=== PATIENT | female | born 1970 | race Caucasian/White ===

== ENCOUNTER 2019-03-04 09:40 | Outpatient (CLI) | payer SELFPAY ==
--- NOTE | 2019-03-04 | US_ITS ---
WS: [id number] ULTRASOUND PELVIS TECHNIQUE: Transabdominal. CLINICAL INFORMATION: MENORRHAGIA LMP: 1 8,020 : No. COMPARISON: None. FINDINGS: Cervix measures 4.1 cm Uterus Orientation: Anteverted. Size: 9.0 cm x 6.6 cm x 5.3 cm Masses: Fibroids measuring 2.2 x 1.5 x 1.3 cm and 2.0 x 1.2 x 1.8 cm Cervix: 4.1 cm. Endometrium: Slightly thickened Endometrium thickness: 10.1 mm Adnexa: Normal. Right ovary size: 2.4 cm x 2.3 cm x 1.6 cm. Right ovary volume: 4.6 ccm3 Left ovary size: 2.9 cm x 5.4 cm x 1.5 cm. Left ovary volume: 5.5 ccm3 Free fluid: None. Other findings: None. US/US pelvic complete* [id number] IMPRESSION: 1. 2 submucosal fibroids measuring 2.2 x 1.5 x 1.3 cm and 2.0 x 1.2 x 1.8 cm 2. Slightly thickened endometrium measuring 10 mm. 3. Both ovaries are normal in appearance. 4. No free fluid in the cul-de-sac.
== END 2019-03-04 09:41 | disposition home or self-care (01) ==
PROVIDERS: Visit Provider Physician Assistant
DX: Z76.89 Persons encountering health services in other specified circumstances (principal)

== ENCOUNTER → 2019-09-13 15:23 | Outpatient (BNVA) | payer SELFPAY | PROVIDERS: Visit Provider Obstetrics & Gynecology | DX: N83.292 Other ovarian cyst, left side (principal); D25.0 Submucous leiomyoma of uterus | CPT/HCPCS: 76830 ==

== ENCOUNTER → 2019-09-14 14:10 | Outpatient (BNVA) | payer SELFPAY | PROVIDERS: Visit Provider Obstetrics & Gynecology | DX: N93.9 Abnormal uterine and vaginal bleeding, unspecified (principal); D25.1 Intramural leiomyoma of uterus | CPT/HCPCS: 88175; 88305 ==

== ENCOUNTER 2019-10-14 09:12 | Outpatient (CLI) | payer OTHER, SELFPAY ==
--- NOTE | 2019-10-14 09:23 | MM_ITS ---
WS: [id number] BILATERAL DIGITAL SCREENING MAMMOGRAPHY WITH CAD CLINICAL INFORMATION: SCREENING HISTORY: Screening mammogram. No current complaints. COMPARISON: August 19, 2017 TECHNIQUE: Bilateral CC and MLO views. FINDINGS: The breasts are composed of heterogeneous fibroglandular density tissue, which can limit the detectio n of small underlying mass lesions. No suspicious mass, asymmetry, calcifications, or architectural d istortion. No evidence of malignancy. MM/[place] [id number] IMPRESSION: BI-RADS: 2-Benign FOLLOW UP: 1 Year Follow-up Recommend return to annual screening mammography.
== END 2019-10-14 09:13 | disposition home or self-care (01) ==
LOC: RADSHAW 09:17
DX: Z12.31 Encounter for screening mammogram for malignant neoplasm of breast (principal)
CPT/HCPCS: 77067

== ENCOUNTER → 2019-10-24 12:59 | Outpatient (BNVA) | payer SELFPAY | PROVIDERS: Visit Provider Obstetrics & Gynecology | DX: Z30.9 Encounter for contraceptive management, unspecified (principal) | CPT/HCPCS: 81025 ==

== ENCOUNTER 2020-08-23 09:14 | Outpatient (CLI) | payer SELFPAY ==
--- NOTE | 2020-08-23 09:30 | MR_ITS ---
WS: [id number] MRI HEAD WITH CONTRAST WITH ATTENTION TO THE INTERNAL AUDITORY CANALS TECHNIQUE: Sagittal T1, T2 axial, T2 axial flair, axial susceptibility weighted imaging, axial diffus ion weighted images, and coronal T2 images were obtained. Pre and post T1 axial and post T1 coronal i mages. ADC and FSPGR images. Post gadolinium images with attention to the internal auditory canals. A xial fiesta imaging. CLINICAL INFORMATION: SNSRNRL HEAR LOSS LT EAR W/UNRESTR HEAR CNTRA SIDE;LT TINNIT COMPARISON: None. FINDINGS: No evidence of restricted diffusion to suggest acute ischemia. Ventricular system and basal cisterns are patent. Normal gayle-white differentiation. No suspicious intracranial signal abnormalities. Mild parenchymal volume loss. Normal posterior fossa. Normal vascular flow voids at the skull base. No extra axial fluid collection s. No evidence of mass or mass effect. Paranasal sinuses and mastoid air cells are well aerated. No h emosiderin on the susceptibly weighted images. Proximal 7th and 8th cranial nerves are normal. Normal trigeminal nerve root entry zones. No evidence of enhancing IAC or CP angle mass. No abnormal intracranial enhancement. Normal cavernous sinuses an d Meckel's cave. Normal optic chiasm and pituitary infundibulum. Normal dural venous sinuses. MR/MR iac's wo/w con* [id number] IMPRESSION: 1. No evidence of restricted diffusion to suggest acute ischemia. 2. No suspicious intracranial signal abnormalities. Mild parenchymal volume lo ss. 3. Paranasal sinuses and mastoid air cells are well aerated. 4. Proximal 7th and 8th cranial nerves are normal in appearance. No evidence o f enhancing IAC or CP angle mass. 5. Normal trigeminal nerve root entry zones. 6. No abnormal intracranial enhancement.
[2020-08-23] MEDS: gadobenate dimeglumine 20 mL vial IV (10:44)
== END 2020-08-23 09:15 | disposition home or self-care (01) ==
LOC: RADSHAW 09:18
PROVIDERS: PCP Family Medicine; Visit Provider Specialist
DX: H90.42 Sensorineural hearing loss, unilateral, left ear, with unrestricted hearing on the contralateral side (principal); H93.12 Tinnitus, left ear
CPT/HCPCS: 70553; A9577

== ENCOUNTER 2024-01-25 08:08 | Outpatient (CLI) | payer OTHER, SELFPAY ==
--- NOTE | 2024-01-25 08:11 | MM_ITS ---
WS: [id number] SCREENING DIGITAL BREAST TOMOSYNTHESIS MAMMOGRAM WITH CAD HISTORY: SCREENING COMPARISON: 08/28/2017, 10/14/2019 Bilateral CC and MLO with tomosynthesis and synthetic mammography submitted. Computer aided detection analyzed. Breast composition: The breasts are extremely dense, which lowers the sensitivity of mammography. Par tially obscured high density mass upper outer quadrant RIGHT breast at a middle depth measures 1.3 x 0.9 x 1.5 cm. A cyst has been described in the upper outer quadrant of the RIGHT breast on prior exam but the location is not exactly the same by mammography. Recommend ultrasound evaluation. There are additional few small scattered calcifications which appear benign. MM/MM scr tomosynthesis [id number] IMPRESSION: BI-RADS: 0 - Incomplete: Need additional imaging evaluation FOLLOW UP: Need Additional Imaging Recommendation: RIGHT breast limited ultrasound evaluation, RIGHT upper outer q uadrant near 10:00.
== END 2024-01-25 08:09 | disposition home or self-care (01) ==
LOC: RAD 08:11
PROVIDERS: PCP Family Medicine; Visit Provider Advanced Practice Midwife
DX: Z12.31 Encounter for screening mammogram for malignant neoplasm of breast (principal); R92.333 Mammographic heterogeneous density, bilateral breasts; N63.11 Unspecified lump in the right breast, upper outer quadrant
CPT/HCPCS: 77063; 77067

== ENCOUNTER 2024-03-14 08:03 | Outpatient (CLI) | payer OTHER, SELFPAY ==
--- NOTE | 2024-03-14 08:12 | US_ITS ---
WS: [id number] ULTRASOUND RIGHT BREAST HISTORY: Abnormal Mammo COMPARISON: 08/28/2017 ultrasound, prior mammogram 01/25/2024 TECHNIQUE: 2-D and Doppler. Numerous cysts are identified upper outer quadrant of the RIGHT breast. The cyst that corresponds to the mammographic abnormality at 10:00, 2 cm from the nipple measures 1.4 x 1.4 x 0.8 cm. A cyst was p resent in this location on the prior ultrasound from 2018 but this cyst is larger. There are numerous smaller cysts. US/US breast RT limited* [id number] IMPRESSION: BI-RADS: 2- Benign FOLLOW-UP: 1 Year Follow-up Numerous cysts in the upper outer quadrant of the RIGHT breast. No solid mass.
== END 2024-03-14 08:04 | disposition home or self-care (01) ==
PROVIDERS: PCP Family Medicine; Visit Provider Advanced Practice Midwife
DX: R92.8 Other abnormal and inconclusive findings on diagnostic imaging of breast (principal); N60.11 Diffuse cystic mastopathy of right breast
CPT/HCPCS: 76642

== ENCOUNTER → 2024-12-15 08:03 | Outpatient (BNVA) | payer SELFPAY | PROVIDERS: PCP Family Medicine; Visit Provider Obstetrics & Gynecology | DX: N93.9 Abnormal uterine and vaginal bleeding, unspecified (principal); N85.8 Other specified noninflammatory disorders of uterus | CPT/HCPCS: 76830; 76856 ==

== ENCOUNTER 2025-01-30 08:12 | Outpatient (CLI) | payer OTHER, SELFPAY ==
--- NOTE | 2025-01-30 08:39 | MM_ITS ---
WS: [id number] SCREENING DIGITAL BREAST TOMOSYNTHESIS MAMMOGRAM WITH CAD HISTORY: ANNUAL SCREEN COMPARISON: 01/25/2024, 10/14/2019 Bilateral CC and MLO with tomosynthesis and synthetic mammography submitted. Computer aided detection analyzed. Breast composition: The breasts are heterogeneously dense, which may obscure small masses. Increasing asymmetry in the RIGHT breast at a posterior depth towards 12:00. There are also a few adjacent calcifications. LEFT breast is negative. MM/MM scr BI tomosynthesis [id number] IMPRESSION: BI-RADS: 0 - Incomplete: Need additional imaging evaluation FOLLOW UP: Need Additional Imaging RIGHT breast: Spot compression views (CC and MLO). True ML. Ultrasound to follo w if abnormality persists. Magnification views may also be necessary.
== END 2025-01-30 08:13 | disposition home or self-care (01) ==
LOC: RAD 08:15
PROVIDERS: PCP Physician Assistant; Visit Provider Advanced Practice Midwife
DX: Z12.31 Encounter for screening mammogram for malignant neoplasm of breast (principal); R92.333 Mammographic heterogeneous density, bilateral breasts; N64.89 Other specified disorders of breast; R92.1 Mammographic calcification found on diagnostic imaging of breast
CPT/HCPCS: 77063; 77067